=== PATIENT | female | born 1980 ===

== ENCOUNTER 2018-07-11 19:39 | Emergency (ER) | payer OTHER ==
[2018-07-11 19:40] VITALS: BMI 24.5
[2018-07-11 20:12] VITALS: BP 156/90; PULSE 72; RESP 18; TEMP 98; O2SAT 100
--- NOTE | 2018-07-11 20:49 | ED PDOC ---
HPI: Back Time Seen by Provider: 07/11/18 20:40 Chief Complaint (Nursing): Back Pain Chief Complaint (Provider): back pain History Per: Patient, Family (daughter at bedside translating for patient in palestinian) Additional Complaint(s): 37-year-old female presents with right-sided back pain ongoing for about 5 months. Patient denies trauma or injury. She denies any urinary symptoms. Patient states that when she does take Advil the pain is better. She denies any fever or chills. PMD: [facility] Past Medical History Reviewed: Historical Data, Nursing Documentation, Vital Signs Vital Signs: Last Vital Signs Temp 98.0 F 07/11/18 20:09 Pulse 72 07/11/18 20:09 Resp 18 07/11/18 20:09 BP 156/90 H 07/11/18 20:09 Pulse Ox 100 07/11/18 20:09 - Medical History PMH: No Chronic Diseases - Surgical History Surgical History: Cholecystectomy - Family History Family History: States: No Known Family Hx - Living Arrangements Living Arrangements: With Family - Social History Current smoker - smoking cessation education provided: No Alcohol: None Drugs: Denies - Home Medications Home Medications: Ambulatory Orders Medication Instructions Recorded DiphenhydrAMINE [Benadryl] 50 mg PO Q6 PRN #24 cap 05/26/18 predniSONE [predniSONE Tab] 2 tab PO DAILY #10 tab 05/26/18 Cyclobenzaprine [Cyclobenzaprine 10 mg PO TID PRN #20 tab 07/11/18 HCl] Ibuprofen [Motrin Tab] 800 mg PO Q8 PRN #20 tab 07/11/18 - Allergies Allergies/Adverse Reactions: Allergies Allergy/AdvReac Type Severity Reaction Status Date / Time No Known Allergies Allergy Verified 07/11/18 20:09 Review of Systems ROS Statement: Except As Marked, All Systems Reviewed And Found Negative Constitutional: Negative for: Fever Cardiovascular: Negative for: Chest Pain Respiratory: Negative for: Cough Gastrointestinal: Negative for: Nausea, Vomiting Genitourinary Female: Negative for: Dysuria, Frequency Musculoskeletal: Positive for: Back Pain Physical Exam - Reviewed Nursing Documentation Reviewed: Yes Vital Signs Reviewed: Yes - Physical Exam Appears: Positive for: Well, Non-toxic, No Acute Distress Skin: Positive for: Normal Color. Negative for: Rash Eye Exam: Positive for: Normal appearance Cardiovascular/Chest: Positive for: Regular Rate, Rhythm Respiratory: Positive for: Normal Breath Sounds Gastrointestinal/Abdominal: Positive for: Soft. Negative for: Tenderness, Distended, Guarding, Rebound Back: Positive for: Vertebral Tenderness (Right lower lumbar region). Negative for: L CVA Tenderness, R CVA Tenderness, Decreased ROM Extremity: Positive for: Normal ROM. Negative for: Pedal Edema Neurologic/Psych: Positive for: Alert, Oriented - Laboratory Results Urine POC: Negative Urine dip results: Negative for: Leukocyte Esterase, Blood, Nitrate, Ketones, Glucose, Bilirubin, Protein - ECG O2 Sat by Pulse Oximetry: 100 Pulse Ox Interpretation: Normal Medical Decision Making Medical Decision Makin-year-old female with right-sided back pain 5 months. Plan: IM toradol Urine dip test Flexeril 10 mg PO Patient reports improvement pain after meds were given. Urine culture sent. Prescriptions given for Motrin and Flexeril. Patient was advised to follow-up with clinic. Disposition - Clinical Impression Clinical Impression: Back pain, Back strain - Patient ED Disposition Is Patient to be Admitted: No Counseled Patient/Family Regarding: Studies Performed, Diagnosis, Need For Followup, Rx Given - Disposition Referrals: [facility] [Outside] Disposition: Routine/Home Disposition Time: 21:22 Condition: STABLE Additional Instructions: Take prescription meds as directed as needed for pain. Follow-up with clinic for further evaluation of ongoing pain. Prescriptions: Cyclobenzaprine [Cyclobenzaprine HCl] 10 mg PO TID PRN #20 tab PRN Reason: Muscle Spasm Ibuprofen [Motrin Tab] 800 mg PO Q8 PRN #20 tab PRN Reason: Pain, Moderate (4-7) Instructions: Low Back Pain in Adults, Back Exercises Forms: [employer] (Macedonian) Print Language: ETHIOPIAN
[2018-07-11] MEDS ORDERED: Bacitracin 500 Units/gm Oint Foilpak UD ONE (21:22)
== END 2018-07-11 22:24 | disposition home or self-care (01) ==
LOC: H.ER 19:39
DX: S39.012A Strain of muscle, fascia and tendon of lower back, initial encounter (principal); X58.XXXA Exposure to other specified factors, initial encounter; Y92.89 Other specified places as the place of occurrence of the external cause
CPT/HCPCS: 81025; 96372; 99282; J1885